=== PATIENT | male | born 1970 | race Caucasian/White ===

== ENCOUNTER 2019-08-23 09:56 | Outpatient (CLI) | payer BC, OTHER ==
[2019-08-28] MEDS ORDERED: MESA500C PO (11:28)
== END 2019-08-23 23:59 | disposition home or self-care (01) ==
LOC: STAR 09:56
PROVIDERS: ATTEND Specialist
DX: Z02.9 Encounter for administrative examinations, unspecified (principal)

== ENCOUNTER 2019-08-30 10:27 | Observation (INO) | payer OTHER ==
[~2019-08-30] VITALS: Ht 193 cm; Wt 116.7 kg
[~2019-08-30 10:27] MED LIST: FENTANYL PF 250 MCG/5ML ONE; MESA500C PO; MIDAZOLAM 1 MG/ML, 2ML ONE
[2019-08-30] MEDS ORDERED: BUPIVACAINE/PF 0.25% ONE (10:41)
[2019-08-30] MEDS ORDERED: EPINEPHRINE 1 MG/ML, 1ML ONE (10:41)
[2019-08-30] MEDS ORDERED: LACTATED RINGERS 1,000 ML IV SCH (10:44)
[2019-08-30] MEDS ORDERED: COCAINE TOPICAL SOLN 4%, 4ML ONE (10:46)
[2019-08-30] MEDS ORDERED: NEOSPORIN OINT, 15GM ONE (10:46)
[2019-08-30] MEDS ORDERED: LIDOCAINE 1%-EPI 1:100K, 20ML ONE (10:46)
[2019-08-30] MEDS ORDERED: OXYMETAZOLINE NASAL SPRAY 0.05%, 15ML ONE (10:46)
[2019-08-30] MEDS ORDERED: THROMBIN (RECOMBINANT) 5,000 UNIT VIAL TP ONE (10:46)
[2019-08-30] MEDS ORDERED: SCOPOLAMINE PATCH, 1.5MG PATCH.TD72 TD ONE (11:14)
[2019-08-30] MEDS ORDERED: LABETALOL 5 MG/ML SYR. (IV ONLY) ONE (11:21)
[2019-08-30] MEDS ORDERED: LIDOCAINE-MPF 2% ,5ML ONE (11:21)
[2019-08-30] MEDS ORDERED: HYDROmorphone 2 MG/ML, 1ML IVPush PRN (12:30)
[2019-08-30] MEDS ORDERED: ACETAMINOPHEN 325 MG TABLET PO PRN (12:30)
[2019-08-30] MEDS ORDERED: LABETALOL 5MG/ML, 20ML IV PRN (12:30)
[2019-08-30] MEDS ORDERED: DIPHENHYDRAMINE 50 MG/ML, 1ML IM PRN (12:30)
[2019-08-30] MEDS ORDERED: HALOPERIDOL 5 MG/ML IV PRN (12:30)
[2019-08-30] MEDS ORDERED: MEPERIDINE/PF 25MG/ML,1ML IVPush PRN (12:30)
[2019-08-30] MEDS ORDERED: ONDANSETRON ODT 8 MG PO PRN (12:30)
[2019-08-30] MEDS ORDERED: ONDANSETRON 2MG/ML, 2ML IV PRN (12:30)
[2019-08-30] MEDS ORDERED: PROMETHAZINE 25 MG/ML, 1ML IV PRN (12:30)
[2019-08-30] MEDS ORDERED: PROMETHAZINE 25 MG SUPP PR PRN (12:30)
[2019-08-30] MEDS ORDERED: LORazepam 2 MG/ML, 1ML IVPush PRN (12:30)
[2019-08-30] MEDS ORDERED: NEOSTIGMINE 1 MG/ML, 10ML ONE (12:45)
[2019-08-30] MEDS ORDERED: SUCCINYLCHOLINE 20 MG/ML, 10ML ONE (12:45)
[2019-08-30] MEDS ORDERED: PROPOFOL 10 MG/ML, 20ML ONE (12:45)
[2019-08-30] MEDS ORDERED: ROCURONIUM 10MG/ML,5ML ONE (12:45)
[2019-08-30] MEDS ORDERED: CEFAZOLIN 1,000 MG ONE (12:45)
[2019-08-30] MEDS ORDERED: GLYCOPYRROLATE 0.2MG/1ML, 5ML ONE (12:45)
[2019-08-30] MEDS ORDERED: DEXAMETHASONE 4 MG/ML, 1ML ONE (12:45)
[2019-08-30] MEDS ORDERED: PROPOFOL 50 ML ONE (12:45)
[2019-08-30] MEDS ORDERED: ONDANSETRON 2MG/ML, 2ML ONE (12:45)
[2019-08-30] MEDS ORDERED: SUGAMMADEX 200 MG/2 ML IVPush ONE (13:01)
[2019-08-30] MEDS ORDERED: FENTANYL PF 100 MCG/2ML ONE (13:54)
[2019-08-30] MEDS: FENTANYL PF 100 MCG/2ML IV PRN ×4 (13:58→14:59)
[2019-08-30] MEDS ORDERED: OXYcodone 5 MG/5 ML ORAL.SOL UDC ONE ×2 (14:12→15:03)
[2019-08-30] MEDS ORDERED: ACETAMINOPHEN 650 MG/20.3 ML UDC ONE ×2 (14:12→14:26)
[2019-08-30] MEDS ORDERED: hydrALAzine 20 MG/ML, 1ML ONE (14:12)
[2019-08-30] MEDS: OXYcodone 5 MG/5 ML ORAL.SOL UDC PO PRN ×2 (14:15→15:03)
[2019-08-30] MEDS: hydrALAzine 20 MG/ML, 1ML IV PRN ×2 (14:17→14:42)
[2019-08-30] MEDS ORDERED: HYDROmorphone 1 MG/ML, 1ML VIAL ONE (15:02)
[2019-08-30] MEDS ORDERED: PROMETHAZINE 25 MG/ML, 1ML ONE (15:10)
[2019-08-30] MEDS ORDERED: ONDANSETRON 2MG/ML, 2ML IVPush PRN (16:30)
[2019-08-30] MEDS: HYDROcodone/APAP 7.5-325MG/15ML UDC PO PRN (17:30)
[2019-08-30] MEDS: LACTATED RINGERS 1,000 ML IV SCH (17:30)
[2019-08-30 19:01] VITALS: BP 142/93
[2019-08-30] MEDS: HYDROmorphone 2 MG/ML, 1ML IV PRN ×2 (20:18→22:33)
[2019-08-30] MEDS: SODIUM CHLORIDE NASAL SPRAY 45ML BOTTLE NAS SCH (22:29)
[2019-08-30 23:55] VITALS: BP 150/81
[2019-08-31] MEDS: HYDROmorphone 2 MG/ML, 1ML IV PRN ×2 (01:55→04:54)
[2019-08-31] MEDS: LACTATED RINGERS 1,000 ML IV SCH ×2 (01:55→12:30)
[2019-08-31 01:58] VITALS: BP 148/85
[2019-08-31 02:00] VITALS: BP 135/88
[2019-08-31 04:12] VITALS: BP 137/89
[2019-08-31 04:25] VITALS: BP 144/87
[2019-08-31] MEDS: SODIUM CHLORIDE NASAL SPRAY 45ML BOTTLE NAS SCH ×2 (07:41→11:13)
[2019-08-31] MEDS: HYDROcodone/APAP 7.5-325MG/15ML UDC PO PRN ×3 (07:45→12:52)
[2019-08-31 08:23] VITALS: BP 132/85
[2019-08-31] MEDS ORDERED: MESALAMINE 250 MG CAPSULE.ER PO SCH (09:00)
[2019-08-31 13:22] VITALS: BP 133/78
[2019-08-31] MEDS ORDERED: ONDA4TAB13 PO (14:13)
[2019-08-31] MEDS ORDERED: HYDR15SO3 PO (14:14)
[2019-08-31] MEDS ORDERED: CEFD300C37 PO (14:15)
[2019-08-31] MEDS ORDERED: SODI30SP NAS (14:19)
[2019-08-31] MEDS ORDERED: ONDANSETRON ODT 4 MG PO ONE (15:00)
== END 2019-08-31 14:54 | disposition home or self-care (01) ==
LOC: OUT 10:27 → 4NE 15:48 → OUT 20:49 → 4NE 20:50 → DCLOUNGE 08-31 14:25
PROVIDERS: ADMIT Specialist; ATTEND Specialist
DX: G47.33 Obstructive sleep apnea (adult) (pediatric) (principal); J34.2 Deviated nasal septum; J34.3 Hypertrophy of nasal turbinates; J31.0 Chronic rhinitis; E66.9 Obesity, unspecified; Z79.899 Other long term (current) drug therapy; I10 Essential (primary) hypertension
CPT/HCPCS: 30140; 30520; 42145; 88304; 96374; 96375; 96376; C1776; G0378; J0171; J0330; J0360; J0690; J1100; J1170; J2250; J2405; J2550; J2704; J2710; J3010; J3490; J7120; Q0162